=== PATIENT | male | born 1975 | race Caucasian/White ===

== ENCOUNTER 2017-07-26 04:25 | Emergency (ER) | payer OTHER ==
[2017-07-26 04:33] VITALS: BP 124/65; PULSE 86; RESP 18; TEMP 97
[2017-07-26] MEDS ORDERED: IBUPROFEN 400 MG TAB PO STA (04:59)
[2017-07-26] MEDS ORDERED: PENICILLIN VK 500MG STARTER 4 TAB BTL PO STA (04:59)
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
== END 2017-07-26 05:21 | disposition home or self-care (01) ==
LOC: EC 04:25
DX: K08.89 Other specified disorders of teeth and supporting structures (principal); K02.9 Dental caries, unspecified; F17.200 Nicotine dependence, unspecified, uncomplicated; Z86.14 Personal history of Methicillin resistant Staphylococcus aureus infection
CPT/HCPCS: 99282

== ENCOUNTER 2019-03-25 22:42 | Inpatient (IN) | payer MEDICAID, OTHER ==
[2019-03-25] MEDS ORDERED: ALPRAZolam 1 MG TAB PO STA (22:58)
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
[2019-03-25 23:32] LABS: Amphetamine Screen,Urine Not Detected (NotDetected); Barbiturate Screen,Urine Not Detected (NotDetected); Benzodiazepines Screen,Urine Not Detected (NotDetected); Cocaine Screen,Urine Detected (NotDetected); Methadone Screen, Urine Not Detected (NotDetected); Opiate Screen,Urine Not Detected (NotDetected); Oxycodone Screen, Urine Not Detected (NotDetected); Phencyclidine Screen,Urine Not Detected (NotDetected); Tricyclic Antidepressant,Urine Not Detected (NotDetected); Urn Cannabinoid Scrn Detected (NotDetected)
[2019-03-25] MEDS ORDERED: NICOTINE 21MG/24HR PATCH TRANSDERM STA (23:38)
[2019-03-26] MEDS ORDERED: ACETAMINOPHEN TAB 325 MG TAB PO PRN (01:47)
[2019-03-26] MEDS ORDERED: MAG HYDROX/AL HYDROX/SIMETH 30 ML CUP PO PRN (01:47)
[2019-03-26] MEDS ORDERED: MAGNESIUM HYDROXIDE 2,400 MG/10 ML CUP PO PRN (01:47)
[2019-03-26] MEDS ORDERED: ZIPRASIDONE 20 MG VIAL IM PRN (01:47)
[2019-03-26] MEDS ORDERED: LORazepam 2 MG/ML INJ IM PRN (01:51)
[2019-03-26] MEDS: NICOTINE 14MG/24HR PATCH TRANSDERM SCH (08:44)
--- NOTE | 2019-03-26 14:09 | P.HP ---
Psychiatric H&P - . H&P Date: 03/26/19 History & Physical: I attempted to engage the patient several times. He refused to get out of bed for the interview. Will attend to interview him again tomorrow. Allergies Allergy/AdvReac Type Severity Reaction Status Date / Time No Known Allergies Allergy Verified 03/25/19 22:51 Vital Signs Temp 97.7 F 03/25/19 22:45 Pulse 85 03/26/19 08:49 Resp 18 03/26/19 08:49 BP 144/99 03/26/19 08:49 Pulse Ox 95 03/26/19 02:37 Intake & Output 03/25/19 03/26/19 03/26/19 18:59 06:59 18:59 Weight 99.79 kg Laboratory Last Values Urine Opiates Screen Not Detected (NotDetected) 03/25/19 23:00 Ur Oxycodone Screen Not Detected (NotDetected) 03/25/19 23:00 Urine Methadone Screen Not Detected (NotDetected) 03/25/19 23:00 Ur Propoxyphene Screen Not Detected (NotDetected) 03/25/19 23:00 Ur Barbiturates Screen Not Detected (NotDetected) 03/25/19 23:00 U Tricyclic Antidepress Not Detected (NotDetected) 03/25/19 23:00 Ur Phencyclidine Scrn Not Detected (NotDetected) 03/25/19 23:00 Ur Amphetamines Screen Not Detected (NotDetected) 03/25/19 23:00 U Methamphetamines Scrn Not Detected (NotDetected) 03/25/19 23:00 U Benzodiazepines Scrn Not Detected (NotDetected) 03/25/19 23:00 Urine Cocaine Screen Detected (NotDetected) H 03/25/19 23:00 U Marijuana (THC) Screen Detected (NotDetected) H 03/25/19 23:00 03/26/19 13:50 03/26/19 14:09
[2019-03-26] MEDS: LISINOPRIL 10 MG TAB PO SCH (16:36)
[2019-03-26] MEDS: guaiFENesin 600 MG TABLET.ER PO PRN (16:36)
[2019-03-26] MEDS: IBUPROFEN 800 MG TAB PO PRN (16:36)
[2019-03-26] MEDS: LORazepam 1 MG TAB PO PRN (20:44)
[2019-03-26] MEDS ORDERED: hydrALAZINE HCL 25 MG TAB PO STA (20:55)
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
[2019-03-27] MEDS: NICOTINE 14MG/24HR PATCH TRANSDERM SCH (08:22)
[2019-03-27] MEDS: amLODIPine 10 MG TAB PO SCH (08:22)
[2019-03-27] MEDS: LISINOPRIL 10 MG TAB PO SCH (08:22)
[2019-03-27] MEDS: IBUPROFEN 800 MG TAB PO PRN ×2 (08:26→19:48)
[2019-03-27] MEDS: guaiFENesin 600 MG TABLET.ER PO PRN (08:28)
[2019-03-27] MEDS: BENZOCAINE/MENTHOL LOZENG 1 EACH LOZENGE MUCOUS MEM PRN ×2 (08:29→19:47)
[2019-03-27 12:24] LABS: ALT 22 U/L (21-72); AST 22 U/L (17-59); African American GFR (CKD) >90 (>60 ml/min/1.73 sqM); Albumin 4.4 g/dL (3.5-5.0); Alkaline Phosphatase 92 U/L (38-126); Anion Gap 11 mmol/L; Bilirubin, Delta 0.2 mg/dL (0.0-0.2); Bilirubin,Unconjugated 0.5 mg/dL (0.0-1.1); Blood Urea Nitrogen 16 mg/dL (9-20); Calcium 9.8 mg/dL (8.4-10.2); Carbon Dioxide 27 mmol/L (22-30); Chloride 102 mmol/L (98-107); Cholesterol 185 mg/dL (<200); Glucose 100 mg/dL (74-99); HDL Cholesterol 28 mg/dL (40-60); Non-African American GFR(CKD) 81 (>60 ml/min/1.73 sqM); Sodium 140 mmol/L (137-145); Total Bilirubin 0.7 mg/dL (0.2-1.3); Total Protein 7.7 g/dL (6.3-8.2); Triglycerides 436 mg/dL (<150)
[2019-03-27 12:42] LABS: Basophils # (A) 0.2 k/uL (0-0.2); Basophils % (A) 1 %; Eosinophils # (A) 0.2 k/uL (0-0.7); Eosinophils % (A) 2 %; HCT 44.4 % (39.0-53.0); Lymphocytes # (A) 2.5 k/uL (1.0-4.8); Lymphocytes % (A) 22 %; MCH 30.8 pg (25.0-35.0); MCHC 33.8 g/dL (31.0-37.0); MCV 91.3 fL (80.0-100.0); Mean Platelet Volume 7.7; Monocytes # (A) 0.5 k/uL (0-1.0); Monocytes % (A) 5 %; Neutrophils # (A) 7.7 k/uL (1.3-7.7); Neutrophils % (A) 68 %; Platelet Count 351 k/uL (150-450); RBC 4.86 m/uL (4.30-5.90); RDW 12.5 % (11.5-15.5); WBC 11.4 k/uL (3.8-10.6)
[2019-03-27 18:53] LABS: Hemoglobin A1C 6.3 % (4.0-6.0)
[2019-03-27] MEDS: LORazepam 1 MG TAB PO PRN (19:47)
[2019-03-28] MEDS: amLODIPine 10 MG TAB PO SCH (08:19)
[2019-03-28] MEDS: LISINOPRIL 10 MG TAB PO SCH (08:19)
[2019-03-28] MEDS: NICOTINE 14MG/24HR PATCH TRANSDERM SCH (08:20)
[2019-03-28] MEDS: BENZOCAINE/MENTHOL LOZENG 1 EACH LOZENGE MUCOUS MEM PRN (08:22)
[2019-03-28] MEDS: guaiFENesin 600 MG TABLET.ER PO PRN (08:23)
[2019-03-28 08:25] VITALS: RESP 20; TEMP 97.5
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
[2019-03-28 10:42] VITALS: BP 135/97; PULSE 83
== END 2019-03-28 13:09 | disposition home or self-care (01) | DRG 897 ==
LOC: EC 22:42 → 3MHU 03-26 01:38
PROVIDERS: ADMIT Psychiatry & Neurology Psychiatry; ATTEND Psychiatry & Neurology Psychiatry
DX: F14.24 Cocaine dependence with cocaine-induced mood disorder (principal); R45.851 Suicidal ideations; R45.850 Homicidal ideations; F32.9 Major depressive disorder, single episode, unspecified; M10.9 Gout, unspecified; F12.20 Cannabis dependence, uncomplicated; F17.200 Nicotine dependence, unspecified, uncomplicated; F43.10 Post-traumatic stress disorder, unspecified; I10 Essential (primary) hypertension; J06.9 Acute upper respiratory infection, unspecified; F41.9 Anxiety disorder, unspecified; Z72.811 Adult antisocial behavior; Z59.0 Homelessness; Z65.3 Problems related to other legal circumstances; Z79.899 Other long term (current) drug therapy
CPT/HCPCS: 80053; 80061; 80306; 82075; 82248; 83036; 84443; 85025; 99285

== ENCOUNTER 2023-11-17 08:21 | Inpatient (IN) | payer OTHER ==
[2023-11-17] MEDS: LORazepam 2 MG/ML INJ IV STA (08:49)
[2023-11-17] MEDS: ASPIRIN 81 MG PO STA (08:49)
[2023-11-17] MEDS: ENALAPRILAT 1.25 MG/ML 1 ML VIAL IVP STA ×2 (08:51→10:33)
[2023-11-17 09:00] LABS: ALT 168 U/L (4-49); AST 89 U/L (17-59); African American GFR (CKD) >90 (>60 ml/min/1.73 sqM); Albumin 4.4 g/dL (3.5-5.0); Alkaline Phosphatase 122 U/L (38-126); Anion Gap 10 mmol/L; Basophils % (A) 0 %; Blood Urea Nitrogen 15 mg/dL (9-20); Calcium 9.3 mg/dL (8.4-10.2); Carbon Dioxide 19 mmol/L (22-30); Chloride 110 mmol/L (98-107); Eosinophils # (A) 0.2 k/uL (0-0.7); Eosinophils % (A) 2 %; Glucose 161 mg/dL (74-99); HCT 48.9 % (39.0-53.0); Lipase 87 U/L (23-300); Lymphocytes % (A) 21 %; MCH 31.7 pg (25.0-35.0); MCHC 32.7 g/dL (31.0-37.0); MCV 97.2 fL (80.0-100.0); Magnesium 1.7 mg/dL (1.6-2.3); Mean Platelet Volume 8.9; Monocytes # (A) 0.5 k/uL (0-1.0); Monocytes % (A) 5 %; Neutrophils % (A) 71 %; Non-African American GFR(CKD) >90 (>60 ml/min/1.73 sqM); Platelet Count 300 k/uL (150-450); Potassium 4.2 mmol/L (3.5-5.1); RBC 5.03 m/uL (4.30-5.90); RDW 13.3 % (11.5-15.5); Sodium 139 mmol/L (137-145); Total Bilirubin 1.2 mg/dL (0.2-1.3); Total Protein 7.6 g/dL (6.3-8.2); WBC 9.9 k/uL (3.8-10.6)
[2023-11-17 09:01] LABS: Partial Thromboplastin Time 24.8 sec (22.0-30.0)
[2023-11-17 09:25] LABS: Amphetamine Screen,Urine Not Detected (NotDetected); Barbiturate Screen,Urine Not Detected (NotDetected); Benzodiazepines Screen,Urine Not Detected (NotDetected); Cocaine Screen,Urine Not Detected (NotDetected); Methadone Screen, Urine Not Detected (NotDetected); Opiate Screen,Urine Not Detected (NotDetected); Oxycodone Screen, Urine Not Detected (NotDetected); Phencyclidine Screen,Urine Not Detected (NotDetected); Tricyclic Antidepressant,Urine Not Detected (NotDetected); Urn Cannabinoid Scrn Detected (NotDetected)
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
--- NOTE | 2023-11-17 09:47 | XR ---
EXAMINATION TYPE: XR chest 2V DATE OF EXAM: 11/17/2023 COMPARISON: 04/22/2011 HISTORY: 48-year-old male with chest pain TECHNIQUE: PA and lateral views FINDINGS: Heart borderline in size. Mild interstitial and perihilar density. No consolidation or pleural effusi on. IMPRESSION: Borderline heart size with mild perihilar and interstitial density. Relate to exclude early pulmonary vascular congestion.
[2023-11-17] MEDS: HEPARIN SODIUM 1,000 UN/ML (10ML VL) IV ONE (10:30)
[2023-11-17] MEDS: HEPARIN SOD,PORK IN 0.45% NACL 25,000 UNIT in 0.45% NACL 1 250ML.BAG IV SCH (10:31)
[2023-11-17] MEDS ORDERED: NITROGLYCERIN SL TABS 0.4 MG TAB SUBLINGUAL PRN (10:43)
[2023-11-17] MEDS: HEPARIN SODIUM 1,000 UN/ML (10ML VL) IV PRN (19:34)
[2023-11-17] MEDS: IPRATROPIUM-ALBUTEROL 3 ML NEB INHALATION SCH (21:55)
[2023-11-18 03:51] LABS: Basophils % (A) 1 %; Eosinophils # (A) 0.2 k/uL (0-0.7); Eosinophils % (A) 2 %; HCT 45.8 % (39.0-53.0); HGB 15.2 gm/dL (13.0-17.5); Lymphocytes # (A) 2.1 k/uL (1.0-4.8); Lymphocytes % (A) 26 %; MCH 32.4 pg (25.0-35.0); MCHC 33.2 g/dL (31.0-37.0); MCV 97.6 fL (80.0-100.0); Mean Platelet Volume 8.3; Monocytes # (A) 0.5 k/uL (0-1.0); Monocytes % (A) 6 %; Neutrophils # (A) 5.4 k/uL (1.3-7.7); Neutrophils % (A) 65 %; Platelet Count 272 k/uL (150-450); RBC 4.69 m/uL (4.30-5.90); RDW 13.4 % (11.5-15.5); WBC 8.3 k/uL (3.8-10.6)
[2023-11-18 04:03] LABS: Partial Thromboplastin Time 24.3 sec (22.0-30.0); Prothrombin Time 11.2 sec (10.0-12.5)
[2023-11-18 08:34] LABS: Chol/HDL Ratio 6.44 Ratio
[2023-11-18 08:35] LABS: LDL Cholesterol,Calculated 80.2 mg/dL (0.0-131.0)
--- NOTE | 2023-11-18 10:39 | CA ---
Transthoracic Echo Report Name: Mino Carty Age: 48 Gender: M : 1975 Exam Date: 11/17/2023 13:19 Exam Location: [place] [facility] Ht (in): 70 Wt (lb): 205 Ordering Physician: Ceferino Newton Attending/Referring Phys: [id number], [employer] Millicent Razo RDCS Procedure CPT: Indications: nstemi Cardiac Hx: Technical Quality: Technically difficult study Contrast 1: Definity Total Dose (mL): 2 Contrast 2: Total Dose (mL): MEASUREMENTS (Male / Female) Normal Values 2D ECHO LV Diastolic Diameter PLAX 5.5 cm 4.2 - 5.9 / 3.9 - 5.3 cm LV Systolic Diameter PLAX 3.8 cm IVS Diastolic Thickness 1.1 cm 0.6 - 1.0 / 0.6 - 0.9 cm LVPW Diastolic Thickness 1.1 cm 0.6 - 1.0 / 0.6 - 0.9 cm LV Relative Wall Thickness 0.4 LVOT Diameter 2.4 cm LV Diastolic Volume MOD BP 147.7 cm??? 67 - 155 / 56 - 104 cm??? LV Systolic Volume MOD BP 81.9 cm??? 22 - 58 / 19 - 49 cm??? LV Ejection Fraction MOD BP 44.5 % >= 55 % LV Cardiac Index MOD BP 2279.3 cm???/min???m??? LV Diastolic Volume MOD 4C 158.0 cm??? LV Systolic Volume MOD 4C 81.1 cm??? LV Ejection Fraction MOD 4C 48.7 % LV Cardiac Index MOD 4C 2663.6 cm???/min???m??? LV Diastolic Length 4C 9.0 cm LV Systolic Length 4C 7.9 cm LV Diastolic Volume MOD 2C 128.9 cm??? LV Systolic Volume MOD 2C 72.3 cm??? LV Ejection Fraction MOD 2C 43.9 % LV Cardiac Index MOD 2C 1961.9 cm???/min???m??? LV Diastolic Length 2C 8.3 cm LV Systolic Length 2C 6.9 cm LA Volume 66.2 cm??? 18 - 58 / 22 - 52 cm??? LA Volume Index 30.6 cm???/m??? 16 - 28 cm???/m??? Ascending Aorta Diameter 3.7 cm DOPPLER AV Peak Velocity 115.3 cm/s AV Peak Gradient 5.3 mmHg AV Mean Velocity 87.1 cm/s AV Mean Gradient 3.2 mmHg AV Velocity Time Integral 22.7 cm LVOT Peak Velocity 88.9 cm/s LVOT Peak Gradient 3.2 mmHg LVOT Velocity Time Integral 17.7 cm LVOT Stroke Volume 77.4 cm??? LVOT Stroke Volume Index 36.7 ml/m??? LVOT Cardiac Index 2682.1 cm???/min???m??? AV Area Cont Eq vti 3.4 cm??? AV Area Cont Eq pk 3.4 cm??? MV Area PHT 5.6 cm??? Mitral E Point Velocity 94.8 cm/s Mitral A Point Velocity 34.0 cm/s Mitral E to A Ratio 2.8 MV Deceleration Time 135.5 ms PV Peak Velocity 95.6 cm/s PV Peak Gradient 3.7 mmHg FINDINGS Left Ventricle Left ventricular ejection fraction is estimated at 50 %. Mildly increased septal wall thickness. Moderately increased left ventricular systolic volume. Moderately decreased left ventricular ejection fraction. No obvious regional wall motion abnormalities. Right Ventricle Normal right ventricular size and function. Unable to estimate the right ventricular systolic pressure. Right Atrium Normal right atrial size. Left Atrium Mildly increased left atrial volume. Mildly increased left atrial area. Mitral Valve Structurally normal mitral valve. No mitral stenosis, regurgitation or prolapse. Aortic Valve Trileaflet aortic valve. No aortic valve stenosis or regurgitation. Tricuspid Valve Structurally normal tricuspid valve. No tricuspid stenosis, regurgitation or prolapse. Pulmonic Valve Pulmonic valve not well visualized. No pulmonic stenosis. No pulmonic regurgitation. Pericardium No pericardial effusion. Aorta Normal size aortic root and proximal ascending aorta. CONCLUSIONS Normal LV size with fair systolic function. Technically difficult study. Echo contrast was used. Mild left atrial enlargement. No pulmonary hypertension. No pericardial effusion Previewed by: Dr. Frederick Rogers MD (Electronically Signed) Final Date: 18 November 2023 10:39
[2023-11-18] MEDS: ASPIRIN 325 MG TAB PO SCH (10:43)
[2023-11-18] MEDS: lisinopriL 20 MG TAB PO SCH (10:43)
[2023-11-18] MEDS ORDERED: ALPRAZolam 0.25 MG TAB PO PRN (10:48)
[2023-11-18] MEDS ORDERED: ALPRAZolam 0.5 MG TAB PO PRN (10:48)
[2023-11-18] MEDS ORDERED: NITROGLYCERIN SL TABS 0.4 MG TAB SUBLINGUAL PRN ×2 (10:48→13:42)
[2023-11-18] MEDS: METOPROLOL TARTRATE 25 MG TAB PO SCH (10:54)
[2023-11-18] MEDS: ATORVASTATIN 80 MG TAB PO STA ×2 (10:54)
[2023-11-18] MEDS: ASPIRIN 325 MG TAB PO STA (10:55)
[2023-11-18 11:45] LABS: Glucose,Whole Blood 194 mg/dL (70-110)
[2023-11-18] MEDS ORDERED: HEPARIN SODIUM 1,000 UN/ML (10ML VL) ONE (12:44)
[2023-11-18] MEDS ORDERED: VERAPAMIL 2.5 MG/ML 2 ML AMP ONE (12:45)
[2023-11-18] MEDS ORDERED: LIDOCAINE 1% INJ 10MG/ML (20 ML MDV) ONE (12:45)
[2023-11-18] MEDS: MIDAZOLAM 2 MG/2 ML VIAL IVP ONE ×2 (12:51→13:01)
[2023-11-18] MEDS: LIDOCAINE 1% INJ 10MG/ML (20 ML MDV) SQ ONE (12:52)
[2023-11-18] MEDS: VERAPAMIL SYRINGE (5 MG/10 ML) INTRAARTER ONE (12:53)
[2023-11-18] MEDS: SODIUM CHLORIDE 0.9% 1,000 ML IV ONE (13:03)
[2023-11-18] MEDS: HEPARIN SODIUM 1,000 UN/ML (10ML VL) IVP ONE ×2 (13:18→13:45)
[2023-11-18] MEDS: NITROGLYCERIN 1000MCG/10ML SYRINGE INTRACORON ONE ×2 (13:20→13:35)
[2023-11-18] MEDS ORDERED: CLOPIDOGREL 75 MG TAB ONE (13:23)
[2023-11-18] MEDS: CLOPIDOGREL 75 MG TAB PO ONE (13:26)
[2023-11-18] MEDS ORDERED: MAG HYDROX/AL HYDROX/SIMETH 30 ML CUP PO PRN (13:42)
[2023-11-18] MEDS ORDERED: ATROPINE SULFATE 0.1 MG/ML 10ML SYRINGE IV PRN (13:42)
[2023-11-18] MEDS ORDERED: RX INFO: IV CONTRAST WAS GIVEN 1 EACH MISC MISCELLANE PRN (13:42)
[2023-11-18] MEDS ORDERED: ZOLPIDEM 5 MG TAB PO PRN (13:42)
--- NOTE | 2023-11-18 13:47 | P.PCN ---
Date of Procedure: 11/18/23 Operative Findings: CARDIAC CATHETERIZATION AND PERCUTANEOUS CORONARY INTERVENTION PERFORMING PHYSICIAN: Roberto Jhaveri MD, [facility] PROCEDURE PERFORMED: 1. Selective right and left coronary angiogram 2. Left heart catheterization 3. Successful stenting of PDA of RCA using 3.0 x 23 Xience TYLER with an excellent angiographic results with gentle use of IVUS 4. Ultrasound-guided access of the right radial artery INDICATION: acute non-ST elevation myocardial infarction COMPLICATION: None APPROACH: right radial artery LEVEL OF SEDATION: Moderate with the sedation time off 48 minutes PROCEDURE DESCRIPTION: After obtaining an informed consent, the patient was brought to cardiac rn cardiac cath. Local anesthesia was performed using lidocaine subcutaneously. The right radial artery was cannulated using micropuncture technique under ultrasound g uidance and the micropuncture wire passed easily then placed a 6-Stateless sheath over the wire. Subsequently the sheath was flushed and secured. Following that, 2 mg of verapamil along with 5000 unit heparin were given. Selective right and left coronary angiogram using a 6-Stateless JR4 and JL 3.5 catheters. Following that we did left heart catheterization using 6-Stateless pigtail catheter. after that I decided to intervene on the RCA. Anticoagulation was initiated using heparin with continuous ACT monitoring. Subsequently I did engage the RCA using 2.75 guiding catheter with any wire the PDA using a run-through wire. Predilatation was performed using 2.5 mm balloon before I deployed 3.0 x 23 mm stent and subsequently intravascular ultrasound was performed and showed that the stent was under expanded so I decided to post dilated using 3.5 mm balloon with final angiogram showed excellent angiographic results and the procedure was completed was no complication The procedure was completed there was no complication. SELECTIVE CORONARY ANGIOGRAM: The right coronary artery: large-caliber vessel and codominant vessel was critical disease involving the PDA Left main: has mild disease only The left circumflex: large-caliber vessel and nondominant vessel was mild disease only. No high- grade stenosis was identified The left anterior descending artery: the proximal to mid LAD has intermediate to severe lesion appeared to be in the range of 60% HEMODYNAMICS: the LVEDP was 20 mmHg CONCLUSION: critical disease involving the PDA of RCA. I performed successful PCI as described above Intermediate to severe lesion involving the proximal to mid LAD POSTPROCEDURE MANAGEMENT: 1. Dual antiplatelet therapy using aspirin and Plavix for 12 month 2. FFR of the LAD
[2023-11-18] MEDS ORDERED: ONDANSETRON 4 MG/2 ML VIAL IVP PRN (14:11)
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
[2023-11-18 16:22] LABS: Glucose,Whole Blood 291 mg/dL (70-110)
[2023-11-18] MEDS: SODIUM CHLORIDE 0.9% 1,000 ML in EMPTY BAG 1 BAG IV SCH (17:16)
[2023-11-18 20:17] LABS: Glucose,Whole Blood 190 mg/dL (70-110)
--- NOTE | 2023-11-19 00:10 | CONS ---
CONSULTATION No Dragon available. Dragon globally has an issue at this time. A 48-year-old male patient, who presented with substernal chest discomfort, this lasted for a while. He was short of breath and nauseous and felt as if it was GERD like symptoms. He has a history of hypertension, but he is not on his medications at this time. He is also prediabetic. He was using cocaine and alcohol and history of substance abuse, but he has been sober for the last 4 months with the exception of marijuana and he is positive for marijuana. His chest x-ray showed mild interstitial and perihilar density without effusion or consolidation. His first 12-lead EKG showed sinus mechanism with Q-waves across V1 through V4, but without any clear ST-segment abnormalities. PS segment is normal. His followup EKG again showed Q-waves in V1 to V3, but without any ST-segment abnormalities. His cardiac enzymes are abnormal 0.18 and 0.47. His other labs are also abnormal including triglycerides of 393, total cholesterol 188, LDL of 80, HDL of 29. He is positive for marijuana. White count is normal. Hemoglobin is normal. Electrolytes are normal. Renal function is normal. AST 89 and ALT 168. Elevated lipase is normal. PHYSICAL EXAMINATION: VITAL SIGNS: Stable. His blood pressure was elevated at 157/104 and 167/99 mmHg, pulse rate around 70 to 100 beats per minute. GENERAL: He looked comfortable. Sitting comfortably in bed. HEART: No murmurs, no gallop, no rub. CHEST: Clear lungs. No rhonchi. No crackles. NECK: No JVD. IMPRESSION: 1. Non-Q-wave myocardial infarction. 2. Q-waves in the anterior precordial leads. 3. Hypertension, uncontrolled, noncompliant with medications. 4. Past history of substance abuse including cocaine and alcohol. 5. Continues to use marijuana. 6. Non-Q-wave myocardial infarction with abnormal cardiac enzymes and story that is consistent with angina. 7. Possible prediabetes. 8. Hypertriglyceridemia. PLAN: The patient was treated with IV heparin, nitroglycerin, lisinopril, and IV enalapril. He was also given aspirin. This morning today, I gave him atorvastatin 80 mg p.o. daily and scheduled him for cardiac catheterization this morning for evaluation of coronary arteries in the setting of non-Q-wave NV. Metoprolol 25 mg twice daily. Continue lisinopril. Continue heparin. Continue aspirin. I called Dr. Jhaveri and he will be proceeding with coronary angiography today. Heparin to continue. Further management thereafter. MMODL / IJN: [id number] /
[2023-11-19 06:08] LABS: Glucose,Whole Blood 163 mg/dL (70-110)
[2023-11-19] MEDS ORDERED: HEPARIN SODIUM,PORCINE (1 ML) 2,500 UNIT in SODIUM CHLORIDE 0.9% 250 ML IRRIGATION PRN (07:00)
[2023-11-19] MEDS ORDERED: HEPARIN SODIUM,PORCINE 10,000 UNIT in SODIUM CHLORIDE 0.9% 1,000 ML IRRIGATION PRN (07:00)
[2023-11-19 07:25] LABS: African American GFR (CKD) >90 (>60 ml/min/1.73 sqM); Anion Gap 7 mmol/L; Blood Urea Nitrogen 13 mg/dL (9-20); Calcium 8.5 mg/dL (8.4-10.2); Carbon Dioxide 22 mmol/L (22-30); Chloride 109 mmol/L (98-107); Glucose 140 mg/dL (74-99); Non-African American GFR(CKD) >90 (>60 ml/min/1.73 sqM); Potassium 4.3 mmol/L (3.5-5.1); Sodium 138 mmol/L (137-145)
[2023-11-19] MEDS: CLOPIDOGREL 75 MG TAB PO SCH (08:55)
[2023-11-19 11:32] LABS: Glucose,Whole Blood 140 mg/dL (70-110)
--- NOTE | 2023-11-19 12:06 | P.PN ---
Subjective HISTORY OF PRESENT ILLNESS: Patient is status postcardiac catheterization with Dr. Jhaveri yesterday. Patient was found to have critical disease involving the PDA of the RCA and intermediate to severe lesion involving the proximal to mid LAD. Patient underwent PCI of the PDA of the RCA. Patient examined this morning at the bedside. Patient has been up ambulating without symptoms. He currently denies any chest pain or pressure. He denies any shortness of breath. Vital signs are stable. PHYSICAL EXAM: VITAL SIGNS: Reviewed. GENERAL: Well-developed in no acute distress. NECK: Supple. No JVD or thyromegaly LUNGS: Respirations even and unlabored. Lungs essentially clear to auscultation bilaterally. HEART: Regular rate and rhythm. S1 and S2 heard. EXTREMITIES: Normal range of motion. No clubbing or cyanosis. Peripheral pulses intact. No lower extremity edema ASSESSMENT: Non-STEMI status post cardiac catheterization with stenting of the PDA of the RCA Intermediate to severe lesion involving the proximal to mid LAD Hypertension Hyperlipidemia Nicotine dependence, 1 pack/day Daily alcohol use, 18 beers a day per patient History of polysubstance abuse, patient states he has been sober for 4 months from drugs PLAN: Continue dual antiplatelet therapy with aspirin and Plavix for 12 months Continue high intensity statin. LDL goal less than 80. Smoking cessation recommended. Patient to be referred to [place] quit line u [facility] discharge. Plan for FFR of the LAD on Tuesday with Dr. Jhaveri Further recommendations pending patient course Nurse practitioner note has been reviewed by physician. Signing provider agrees with the documented findings, assessment, and plan of care documented by EMPLOYEE BENEFITS ATTORNEY as a scribe. Objective - Vital Signs Vital signs: Vital Signs Temp 98.1 F 11/19/23 08:00 Pulse 80 11/19/23 09:22 Resp 16 11/19/23 08:00 BP 141/88 11/19/23 08:00 Pulse Ox 98 11/19/23 09:11 FiO2 21 11/18/23 07:42 Intake & Output 11/18/23 11/19/23 11/19/23 18:59 06:59 18:59 Intake Total 762.122 4759 128 Output Total 0 Balance 411.599 5023 128 Weight 96 kg Intake: IV 20 20 10 Invasive Line 2 20 20 10 Intake, IV Titration 49.197 Amount Heparin Sod,Pork in 0.45% 49.197 NaCl 25,000 unit In 0.45 % NaCl 1 250ml.bag @ 10. 75 UNITS/KG/HR 9.996 mls/ hr IV .Q24H [facility] Rx#: [id number] Oral 180 1020 118 Output: Stool 0 Other: Voiding Method Toilet Toilet Urinal Urinal # Voids 2 1 - Labs CBC & Chem 7: 11/18/23 03:23 11/19/23 06:41 Labs: Abnormal Lab Results - Last 24 Hours (Table) 11/18/23 11/18/23 11/19/23 Range/Units 16:21 20:15 06:06 Chloride (98-107) mmol/L Glucose (74-99) mg/dL POC Glucose (mg/dL) 291 H 190 H 163 H (70-110) mg/dL 11/19/23 11/19/23 Range/Units 06:41 11:29 Chloride 109 H (98-107) mmol/L Glucose 140 H (74-99) mg/dL POC Glucose (mg/dL) 140 H (70-110) mg/dL
[2023-11-19 13:08] VITALS: BMI 30.3
[2023-11-19] MEDS ORDERED: ALPRAZolam 0.5 MG TAB PO PRN (13:43)
[2023-11-19] MEDS ORDERED: NITROGLYCERIN SL TABS 0.4 MG TAB SUBLINGUAL PRN (13:43)
--- NOTE | 2023-11-19 14:41 | P.PN ---
Subjective Progress Note Date: 11/19/23 Principal diagnosis: chest pain Non-STEMI Coronary artery disease Status post stent in RCA Dyslipidemia Hypertension hypertensive cardiovascular disease History of substance use Chronic nicotine abuse 11/19/2023, patient seen and examined during rounds labs reviewed medications reviewed care plan discussed with the patient, patient has been evaluated again by cardiovascular services felt that an another critical stenosis present which is to be dealt with highly in next week patient isscheduled for repeat cardiac cath angiogram and stent placement on Tuesday. Labs are reviewed chemistry fairly within normal limit blood glucose 140 48-year-old male who presented she department with chest pain substernal in nature, patient does have a history of hypertension hypertensive cardiovascular disease and generalized anxiety disorder, patient is not taking his medications for several months, used to be on lisinopril but stopped taking several months ago he has a history of substance use in the past however for the last several months he is using just marijuana. His past medical history significant for gout, hypertension, bipolar disorder, PTSD, active smoker and smokes 1 pack per day for about 20-25 years, prior history of cocaine and marijuana use on arrival his ECG significant for sinus rhythm with anterior lateral ST segment changes, chest x-ray perihilar interstitial interstitial densities with cardiomegaly borderline, echocardiogram normal LV size,with systolic function, troponin first was 0.18 increased to 0.47 triglyceride 398, patient was taken to the [facility] earlier today, RCA stent done2 right radial artery approach Objective - Vital Signs Vital signs: Vital Signs Temp 98.1 F 11/19/23 08:00 Pulse 80 11/19/23 09:22 Resp 16 11/19/23 08:00 BP 141/88 11/19/23 08:00 Pulse Ox 98 11/19/23 09:11 FiO2 21 11/18/23 07:42 Intake & Output 11/18/23 11/19/23 11/19/23 18:59 06:59 18:59 Intake Total 658.743 8138 128 Output Total 0 Balance 249.741 1725 128 Weight 96 kg 96 kg Intake: IV 20 20 10 Invasive Line 2 20 20 10 Intake, IV Titration 49.197 Amount Heparin Sod,Pork in 0.45% 49.197 NaCl 25,000 unit In 0.45 % NaCl 1 250ml.bag @ 10. 75 UNITS/KG/HR 9.996 mls/ hr IV .Q24H [facility] Rx#: [id number] Oral 180 1020 118 Output: Stool 0 Other: Voiding Method Toilet Toilet Urinal Urinal # Voids 2 1 - Exam - Constitutional General appearance: average body habitus, cooperative, disheveled - EENT Eyes: EOMI, PERRLA Ears: bilateral: normal - Neck Carotids: bilateral: upstroke normal Thyroid: bilateral: normal size - Respiratory Respiratory: bilateral: CTA - Cardiovascular Rhythm: regular Heart sounds: normal: S1, S2 - Gastrointestinal General gastrointestinal: soft - Integumentary Integumentary: normal turgor - Neurologic Neurologic: CNII-XII intact - Musculoskeletal Musculoskeletal: gait normal, generalized weakness, strength equal bilaterally - Psychiatric Psychiatric: A&O x's 3, appropriate affect, intact judgment & insight - Labs CBC & Chem 7: 11/18/23 03:23 11/19/23 06:41 Labs: Abnormal Lab Results - Last 24 Hours (Table) 11/18/23 11/18/23 11/19/23 Range/Units 16:21 20:15 06:06 Chloride (98-107) mmol/L Glucose (74-99) mg/dL POC Glucose (mg/dL) 291 H 190 H 163 H (70-110) mg/dL 11/19/23 11/19/23 Range/Units 06:41 11:29 Chloride 109 H (98-107) mmol/L Glucose 140 H (74-99) mg/dL POC Glucose (mg/dL) 140 H (70-110) mg/dL Assessment and Plan Assessment: Critical stenosis of mid LAD to be evaluated further next week chest pain Non-STEMI Coronary artery disease Status post stent in PDA of RCA Dyslipidemia Hypertension hypertensive cardiovascular disease History of substance use Chronic nicotine abuse Plan: repeat cardiac cath angiogram early next week patient status post cardiac cath angiogram and stent placed in RCA patient currently is pain-free double antiplatelet agent High-intensity statins to be started Antihypertensive agents to be resumed smoking cessation counseling advised Time with Patient: Greater than 30
[2023-11-19 16:05] LABS: Glucose,Whole Blood 130 mg/dL (70-110)
[2023-11-19 20:00] LABS: Glucose,Whole Blood 162 mg/dL (70-110)
[2023-11-19] MEDS: ATORVASTATIN 80 MG TAB PO SCH (20:20)
[2023-11-19] MEDS: ALPRAZolam 0.25 MG TAB PO PRN (20:20)
[2023-11-20 03:59] VITALS: RESP 18
[2023-11-20 06:04] LABS: Glucose,Whole Blood 193 mg/dL (70-110)
[2023-11-20] MEDS: ASPIRIN 81 MG PO SCH (08:50)
--- NOTE | 2023-11-20 10:28 | P.PN ---
Subjective HISTORY OF PRESENT ILLNESS: Patient is status postcardiac catheterization with Dr. Jhaveri yesterday. Patient was found to have critical disease involving the PDA of the RCA and intermediate to severe lesion involving the proximal to mid LAD. Patient underwent PCI of the PDA of the RCA. Patient examined this morning at the bedside. Patient has been up ambulating without symptoms. He currently denies any chest pain or pressure. He denies any shortness of breath. Vital signs are stable. 11/20/2023 Patient examined this morning at the bedside. Patient currently denies chest pain or pressure. He denies shortness of breath he has been up ambulating in the hallway without difficulty. Patient had some short runs of nonsustained ventricular tachycardia overnight. Patient's blood pressure this morning remains elevated with a systolic in the 150s. Patient was placed on albuterol breathing treatments per primary medicine. Patient states he has not been having any shortness of breath or wheezing. He states that he begins to have ch est discomfort after he is finished with his breathing treatment. PHYSICAL EXAM: VITAL SIGNS: Reviewed. GENERAL: Well-developed in no acute distress. NECK: Supple. No JVD or thyromegaly LUNGS: Respirations even and unlabored. Lungs essentially clear to auscultation bilaterally. HEART: Regular rate and rhythm. S1 and S2 heard. EXTREMITIES: Normal range of motion. No clubbing or cyanosis. Peripheral pulses intact. No lower extremity edema ASSESSMENT: Non-STEMI status post cardiac catheterization with stenting of the PDA of the RCA Intermediate to severe lesion involving the proximal to mid LAD Hypertension Hyperlipidemia Nicotine dependence, 1 pack/day Daily alcohol use, 18 beers a day per patient History of polysubstance abuse, patient states he has been sober for 4 months from drugs Nonsustained ventricular tachycardia Chest pain following albuterol breathing treatment PLAN: Continue dual antiplatelet therapy with aspirin and Plavix for 12 months Continue high intensity statin. LDL goal less than 70. Discontinue metoprolol. Begin carvedilol 6.25 mg twice a day for optimal blood pressure control Discontinue breathing treatments as these are not clinically necessary at this time and patient reports chest pain after finishing nebulizer Smoking cessation recommended. Patient to be referred to [place] quit line upon discharge. Plan for FFR of the LAD on Tuesday with Dr. Jhaveri Further recommendations pending patient course Nurse practitioner note has been reviewed by physician. Signing provider agrees with the documented findings, assessment, and plan of care documented by SEARCH ENGINE OPTIMIZATION STRATEGIST as a scribe. Objective - Vital Signs Vital signs: Vital Signs Temp 98.7 F 11/20/23 08:00 Pulse 84 11/20/23 09:02 Resp 18 11/20/23 08:00 BP 141/94 11/20/23 08:00 Pulse Ox 96 11/20/23 08:56 FiO2 21 11/18/23 07:42 Intake & Output 11/19/23 11/20/23 11/20/23 18:59 06:59 18:59 Intake Total 256 678 348 Output Total 0 0 Balance 256 678 348 Weight 96 kg 96.5 kg Intake: IV 20 20 10 Invasive Line 2 20 20 10 Oral 236 658 338 Output: Stool 0 0 Other: Voiding Method Toilet Toilet Toilet Urinal # Voids 1 - Labs CBC & Chem 7: 11/18/23 03:23 11/19/23 06:41 Labs: Abnormal Lab Results - Last 24 Hours (Table) 11/19/23 11/19/23 11/19/23 Range/Units 11:29 16:02 19:59 POC Glucose (mg/dL) 140 H 130 H 162 H (70-110) mg/dL 11/20/23 Range/Units 06:01 POC Glucose (mg/dL) 193 H (70-110) mg/dL
[2023-11-20 11:21] LABS: Glucose,Whole Blood 108 mg/dL (70-110)
--- NOTE | 2023-11-20 11:21 | P.PN ---
Subjective Progress Note Date: 11/20/23 Principal diagnosis: chest pain Non-STEMI Coronary artery disease Status post stent in RCA Dyslipidemia Hypertension hypertensive cardiovascular disease History of substance use Chronic nicotine abuse 11/20/2023, patient seen and examined and discussed, is up and about in h is room, no chest pain is present, patient is scheduled for cardiac cath and really look for tomorrowvitals are stable,our blood pressure slightly running on the higher side, labs not done today. Patient remains on dual antiplatelet agent and high-intensity statins patient has been started on Coreg as well 11/19/2023, patient seen and examined during rounds labs reviewed medications reviewed care plan discussed with the patient, patient has been evaluated again by cardiovascular services felt that an another critical stenosis present which is to be dealt with highly in next week patient isscheduled for repeat cardiac cath angiogram and stent placement on Tuesday. Labs are reviewed chemistry fairly within normal limit blood glucose 140 48-year-old male who presented she department with chest pain substernal in nature, patient does have a history of hypertension hypertensive cardiovascular disease and generalized anxiety disorder, patient is not taking his medications for several months, used to be on lisinopril but stopped taking several months ago he has a history of substance use in the past however for the last several months he is using just marijuana. His past medical history significant for gout, hypertension, bipolar disorder, PTSD, active smoker and smokes 1 pack per day for about 20-25 years, prior history of cocaine and marijuana use on arrival his ECG significant for sinus rhythm with anterior lateral ST segment changes, chest x-ray perihilar interstitial interstitial densities with cardiomegaly borderline, echocardiogram normal LV size,with systolic function, troponin first was 0.18 increased to 0.47 triglyceride 398, patient was taken to the [facility] earlier today, RCA stent done2 right radial artery approach Objective - Vital Signs Vital signs: Vital Signs Temp 98.7 F 11/20/23 08:00 Pulse 84 11/20/23 09:02 Resp 18 11/20/23 08:00 BP 141/94 11/20/23 08:00 Pulse Ox 96 11/20/23 08:56 FiO2 21 11/18/23 07:42 Intake & Output 11/19/23 11/20/23 11/20/23 18:59 06:59 18:59 Intake Total 256 678 348 Output Total 0 0 Balance 256 678 348 Weight 96 kg 96.5 kg Intake: IV 20 20 10 Invasive Line 2 20 20 10 Oral 236 658 338 Output: Stool 0 0 Other: Voiding Method Toilet Toilet Toilet Urinal # Voids 1 - Exam - Constitutional General appearance: average body habitus, cooperative, disheveled - EENT Eyes: EOMI, PERRLA Ears: bilateral: normal - Neck Carotids: bilateral: upstroke normal Thyroid: bilateral: normal size - Respiratory Respiratory: bilateral: CTA - Cardiovascular Rhythm: regular Heart sounds: normal: S1, S2 - Gastrointestinal General gastrointestinal: soft - Integumentary Integumentary: normal turgor - Neurologic Neurologic: CNII-XII intact - Musculoskeletal Musculoskeletal: gait normal, generalized weakness, strength equal bilaterally - Psychiatric Psychiatric: A&O x's 3, appropriate affect, intact judgment & insight - Labs CBC & Chem 7: 11/18/23 03:23 11/19/23 06:41 Labs: Abnormal Lab Results - Last 24 Hours (Table) 11/19/23 11/19/23 11/19/23 Range/Units 11:29 16:02 19:59 POC Glucose (mg/dL) 140 H 130 H 162 H (70-110) mg/dL 11/20/23 Range/Units 06:01 POC Glucose (mg/dL) 193 H (70-110) mg/dL Assessment and Plan Assessment: Critical stenosis of mid LAD to be evaluated further next week chest pain Non-STEMI Coronary artery disease Status post stent in PDA of RCA Dyslipidemia Hypertension hypertensive cardiovascular disease History of substance use Chronic nicotine abuse Plan: repeat cardiac cath angiogram early next week patient status post cardiac cath angiogram and stent placed in RCA patient currently is pain-free double antiplatelet agent High-intensity statins to be started Antihypertensive agents to be resumed smoking cessation counseling advised Time with Patient: Greater than 30
[2023-11-20 16:38] LABS: Glucose,Whole Blood 127 mg/dL (70-110)
[2023-11-20] MEDS: carvediloL 6.25 MG TAB PO SCH (16:54)
[2023-11-20 20:05] LABS: Glucose,Whole Blood 153 mg/dL (70-110)
[2023-11-20 22:27] VITALS: TEMP 98.1
[2023-11-21] MEDS: SODIUM CHLORIDE 0.9% 1,000 ML in EMPTY BAG 1 BAG IV SCH (03:35)
[2023-11-21 03:49] VITALS: BP 144/85; PULSE 73
[2023-11-21] MEDS: ASPIRIN 325 MG TAB PO ONE (05:44)
[2023-11-21] MEDS: ATORVASTATIN 80 MG TAB PO ONE (05:44)
[2023-11-21 06:00] LABS: Glucose,Whole Blood 151 mg/dL (70-110)
[2023-11-21] MEDS ORDERED: HEPARIN SODIUM,PORCINE (1 ML) 2,500 UNIT in SODIUM CHLORIDE 0.9% 250 ML IRRIGATION PRN (07:00)
[2023-11-21] MEDS ORDERED: HEPARIN SODIUM,PORCINE 10,000 UNIT in SODIUM CHLORIDE 0.9% 1,000 ML IRRIGATION PRN (07:00)
--- NOTE | 2023-11-21 07:46 | P.PN ---
Subjective Progress Note Date: 11/21/23 This is a 48-year-old gentleman who was admitted to the hospital with non-STEMI and underwent a heart catheterization and PCI of the PDA and he is known to have intermediate to severe disease involving the LAD and currently in process of having an FFR. November 21, 2023 He was seen and evaluated this morning with he is asymptomatic. He is on dual antiplatelet therapy along with high intensity statin. The plan is to pursue with FFR of the LAD the examination is remarkable for stable vital signs with regular rate and rhythm and no edema was noted in the lower extremities Assessment 1. Non-ST elevation myocardial infarction Status post PCI of the PDA Intermediate to severe disease involving the LAD Plan Continue the current medical regimen Proceed with FFR of the LAD Objective - Vital Signs Vital signs: Vital Signs Temp 98.1 F 11/20/23 20:30 Pulse 73 11/21/23 03:20 Resp 18 11/21/23 03:20 BP 144/85 11/21/23 03:20 Pulse Ox 98 11/21/23 03:20 FiO2 21 11/18/23 07:42 Intake & Output 11/20/23 11/21/23 11/21/23 18:59 06:59 18:59 Intake Total 1544 20 Output Total 0 Balance 1544 20 Weight 96.1 kg Intake: IV 20 20 Invasive Line 2 20 20 Oral 1524 Output: Stool 0 Other: Voiding Method Toilet Toilet # Voids 2 2 - Labs CBC & Chem 7: 11/18/23 03:23 11/19/23 06:41 Labs: Abnormal Lab Results - Last 24 Hours (Table) 11/20/23 11/20/23 11/21/23 Range/Units 16:36 20:03 05:59 POC Glucose (mg/dL) 127 H 153 H 151 H (70-110) mg/dL
== END 2023-11-21 08:09 | disposition left against medical advice (07) | DRG 322 ==
LOC: EC 08:21 → 3SCARD 10:21
PROVIDERS: ADMIT Family Medicine; ATTEND Family Medicine
PROC: 027034Z Dilation of Coronary Artery, One Artery with Drug-eluting Intraluminal Device, Percutaneous Approach (ICD-10-PCS; principal; 2023-11-17)
PROC: 4A023N7 Measurement of Cardiac Sampling and Pressure, Left Heart, Percutaneous Approach (ICD-10-PCS; 2023-11-17)
PROC: B2111ZZ Fluoroscopy of Multiple Coronary Arteries using Low Osmolar Contrast (ICD-10-PCS; 2023-11-17)
PROC: B240ZZ3 Ultrasonography of Single Coronary Artery, Intravascular (ICD-10-PCS; 2023-11-17)
DX: I21.4 Non-ST elevation (NSTEMI) myocardial infarction (principal); I47.20 Ventricular tachycardia, unspecified; I25.119 Atherosclerotic heart disease of native coronary artery with unspecified angina pectoris; E78.1 Pure hyperglyceridemia; Z53.29 Procedure and treatment not carried out because of patient's decision for other reasons; M10.9 Gout, unspecified; F43.10 Post-traumatic stress disorder, unspecified; I10 Essential (primary) hypertension; F17.210 Nicotine dependence, cigarettes, uncomplicated; F31.9 Bipolar disorder, unspecified; R73.03 Prediabetes; E78.5 Hyperlipidemia, unspecified; Z82.49 Family history of ischemic heart disease and other diseases of the circulatory system; Z91.148 Patient's other noncompliance with medication regimen for other reason; Z86.14 Personal history of Methicillin resistant Staphylococcus aureus infection
CPT/HCPCS: 36415; 71046; 80048; 80053; 80061; 80306; 83690; 83735; 84484; 85025; 85379; 85610; 85730; 92978; 93005; 93306; 93458; 94640; 94760; 96365; 96366; 96375; 99291